=== PATIENT | female | born 1970 | race Caucasian/White ===

== ENCOUNTER 2019-11-12 14:44 | Emergency (ER) | payer BC, SELFPAY ==
[2019-11-12 14:56] VITALS: BP 111/71; PULSE 78; RESP 18; TEMP 37.2; O2SAT 100
--- NOTE | 2019-11-12 15:30 | ED.URI ---
HPI - URI/Sore Throat General Chief Complaint: Upper Respiratory Infection Stated Complaint: cough/sinus Time Seen by Provider: 11/12/19 15:31 Source: patient and RN notes reviewed Mode of arrival: ambulatory Limitations: no limitations History of Present Illness HPI Narrative: 49 year old female who presents to [facility] care with complaints of 3 week history of cough, pressure to face noted with clear nasal drainage. Patient states that her cough is productive of yellow tinged mucous, denies any wheezing or acute shortness of breath, SAO2 100% on room air. MD elicited complaint: cough, rhinorrhea, nasal congestion and sinus pain Pertinent past history: sinusitis Onset (ago): week(s) (3) Consistency: progressively worsening Severity: similar to previous episodes Description of mucous: clear and yellow Able to tolerate fluids by mouth: Yes Exacerbating factors: exertion, supine positioning and leaning forward Relieving factors: nothing Associated symptoms: headache, rhinorrhea, nasal congestion and cough Treatments prior to arrival: acetaminophen and other (cough medication) Related Data Allergies Allergy/AdvReac Type Severity Reaction Status Date / Time No Known Allergies Allergy Verified 11/12/19 14:58 Review of Systems Review of Systems: Narrative: CONSTITUTIONAL: Denies fever, chills, or sweats. EYES: Denies visual changes, redness, or discharge. ENT: positive for rhinorrhea, congestion, no sore throat, otalgia. CARDIOVASCULAR: Denies chest pain, palpitations, or edema. RESPIRATORY: positive cough denies dyspnea. GASTROINTESTINAL: Denies abdominal pain, nausea, vomiting, or diarrhea. GENITOURINARY: Denies dysuria or hematuria. SKIN: Denies rash or itching. MUSCULOSKELETAL: Denies back pain, joint pain, or myalgia. NEUROLOGIC: Positive headache, numbness, or weakness. PSYCHIATRIC: Denies anxiety or depression. All systems reviewed & are unremarkable except as noted in HPI and below PMFSH Past Medical History Medical History (Updated 11/12/19 @ 18:18 by Sonia Stephens NP) Sinusitis Social History Social History (Updated 11/12/19 @ 18:17 by Sonia Stephens NP) Smoking status: Current every day smoker Living arrangements: with family Gender identity (if verbalized by the patient): Female Comments At time of signature, agree with nursing past medical, social history. There is no relevant family history pertinent to the presenting complaint Exam Narrative: Exam Narrative: GENERAL: Well-appearing, well-nourished, and in no acute distress. HEAD: Normocephalic, atraumatic. EYES: PERRLA and EOMI. ENT: Nares red, clear rhinorrhea no epistaxis. Mucous membranes moist. NECK: Supple.no lymphadenopathy CHEST: Clear to auscultation. No respiratory distress.cough productive yellow mucous HEART: Regular rate and rhythm. No murmur heard. Normal peripheral pulses. ABDOMEN: Soft, nontender, nondistended, normal active bowel sounds. EXTREMITIES: Normal range of motion. No edema. SKIN: Warm, dry, no rash. NEURO: No focal deficits. Alert and oriented x3. Course Vital Signs Vital signs: Vital Signs Temperature 37.2 C 11/12/19 14:56 Pulse Rate 78 11/12/19 14:56 Respiratory Rate 18 11/12/19 14:56 Blood Pressure 111/71 11/12/19 14:56 Pulse Oximetry 100 11/12/19 14:56 Temperature 37.2 C 11/12/19 14:56 Pulse Rate 78 11/12/19 14:56 Respiratory Rate 18 11/12/19 14:56 Blood Pressure 111/71 11/12/19 14:56 Pulse Oximetry 100 11/12/19 14:56 MDM - URI/Sore Throat Differential Diagnosis Differential diagnosis: Likely upper respiratory infection, sinusitis and other (cough and congestion) Medical Records Attestation: I reviewed the patient's medical records. Critical Care Time Critical Care Time Critical Care Time: No Discharge Plan Discharge Clinical Impression: Sinusitis Qualifiers: Sinusitis location: other Chronicity: acute Recurrence: non-recurrent Qualified Code(s): J01
== END 2019-11-12 15:52 | disposition home or self-care (01) ==
PROVIDERS: Emergency Provider Registered Nurse; PCP Family Medicine
DX: J01.80 Other acute sinusitis (principal); F17.200 Nicotine dependence, unspecified, uncomplicated
CPT/HCPCS: 99213; G0463

== ENCOUNTER 2021-09-16 09:22 | Outpatient (CLI) | payer BC, SELFPAY ==
[2021-09-16 13:09] LABS: Alanine Aminotransferase 30 U/L (4-35); Albumin Level 4.6 g/dL (3.5-5.1); Alkaline Phosphatase 124 U/L (38-126); Anion Gap 8 mmol/L (8-16); Aspartate Amino Transferase 56 U/L (14-36); Bilirubin,Total 0.5 mg/dL (0.2-1.3); Blood Urea Nitrogen 15 mg/dL (7-17); Carbon Dioxide 27 mmol/L (22-30); Chloride 105 mmol/L (98-107); Cholesterol 242 mg/dL (0-200); Estimated Glomerular Filt Rate > 60; Glucose 88 mg/dL (65-110); HDL Direct 71 mg/dL; Potassium 3.9 mmol/L (3.4-5.0); Sodium 140 mmol/L (137-145); Triglycerides 112 mg/dL (<150)
[2021-09-16 13:19] LABS: LDL Cholesterol Direct 119 mg/dL
== END 2021-09-16 09:23 | disposition home or self-care (01) ==
LOC: ANHWCLAB 09:24
PROVIDERS: PCP Emergency Medicine; Visit Provider Emergency Medicine
DX: Z13.220 Encounter for screening for lipoid disorders (principal)
CPT/HCPCS: 36415; 80053; 80061

== ENCOUNTER 2021-10-03 08:50 | Outpatient (CLI) | payer BC, SELFPAY ==
--- NOTE | ~2021-10-03 | CT_ITS ---
EXAMINATION: CT abdomen pelvis wo con EXAM DATE: 10/03/2021 09:30 INDICATION: R10.9 - Unspecified abdominal pain . TECHNIQUE: Spiral CT of the abdomen and pelvis was performed without contrast. Axial, coronal and sag ittal images were reviewed. The dose-length product (DLP) for this examination was 185.58 mGy-cm. T he exposure was tailored according to patient size (auto mA exposure control), and iterative reconstr uction (ASIR) was used as additional dose reduction technique. There is no prior study for compariso n. FINDINGS: There is no nephrolithiasis or hydronephrosis. The uterus is anteverted and morphological ly normal. The bladder is unremarkable. The liver, spleen, adrenal glands and pancreas are unremar kable. Gallbladder is unremarkable. No biliary obstruction. There is no retroperitoneal or pelvic lymphadenopathy. Small umbilical fat-containing hernia. There are no findings to suggest appendicitis. The stomach and small bowel are unremarkable. There is moderate amount of colonic stool. No free intraperitoneal gas. The heart is normal in size. T here are no pericardial or pleural effusions. 5 mm left lower lobe nodule without spiculations. Isatu ral other smaller left lower lobe nodules. These are probably granulomas. Several left lower lobe vira cified granulomas. If patient has risk factor for lung cancer consider a follow-up chest CT without c ontrast. There are no osteoblastic or osteolytic lesions identified. IMPRESSION: 1. Moderate amount of colonic stool. 2. Left basilar calcified and noncalcified nodules and granulomas; optional one-year follow-up chest CT without contrast. Reviewed, dictated and finalized at location [facility] [employer] IMPRESSION: 1. Moderate amount of colonic stool. 2. Left basilar calcified and noncalcified nodules and granulomas; optional on e-year follow-up chest CT without contrast.
== END 2021-10-03 08:51 | disposition home or self-care (01) ==
LOC: ANHIMG 08:56
PROVIDERS: PCP Emergency Medicine; Visit Provider Emergency Medicine
DX: R10.9 Unspecified abdominal pain (principal); R91.8 Other nonspecific abnormal finding of lung field
CPT/HCPCS: 74176

== ENCOUNTER 2021-11-21 09:47 | Outpatient (CLI) | payer BC, SELFPAY ==
--- NOTE | ~2021-11-21 | MM_ITS ---
EXAMINATION: MM screening liz BI w ct HISTORY: Screening TECHNIQUE: Craniocaudal and mediolateral oblique 3-D tomosynthesis images were obtained and synthetic 2-D images were generated. CAD analysis was submitted and interpreted. COMPARISON: No prior mammogram is available for comparison at this institution. BREAST PARENCHYMAL COMPOSITION: The breasts are heterogenously dense, which may obscure small masses FINDINGS: There is an asymmetry in the medial aspect of the left breast on CC view. There is no evide nce for malignancy in the right breast. IMPRESSION: 1. Focal asymmetry medial aspect of the left breast 2. Additional mammographic views and possible breast ultrasound are recommended. BI-RADS Category 0: Incomplete: Needs additional imaging evaluation. Reviewed, dictated and finalized at location [facility]. [facility] [employer] [facility] IMPRESSION: 1. Focal asymmetry medial aspect of the left breast 2. Additional mammographic views and possible breast ultrasound are recommended . BI-RADS Category 0: Incomplete: Needs additional imaging evaluation.
== END 2021-11-21 09:48 | disposition home or self-care (01) ==
LOC: ANHIMG 09:48
PROVIDERS: PCP Emergency Medicine; Visit Provider Emergency Medicine
DX: Z12.31 Encounter for screening mammogram for malignant neoplasm of breast (principal); R92.8 Other abnormal and inconclusive findings on diagnostic imaging of breast
CPT/HCPCS: 77063; 77067

== ENCOUNTER 2021-12-17 10:34 | Outpatient (CLI) | payer BC, SELFPAY ==
--- NOTE | ~2021-12-17 | MMUS_ITS ---
EXAMINATION: MM diagnostic liz LT w ct, US breast LT limited HISTORY: Possible left breast mass on screening mammogram TECHNIQUE: Additional 3-D tomosynthesis images of the left breast were performed and synthetic 2-D im ages were generated. CAD analysis was submitted and interpreted. High resolution limited left breast ultrasound was performed. COMPARISON: 11/21/2021, 05/23/2018, 06/18/2011 FINDINGS: MAMMOGRAPHIC FINDINGS: There is an approximately 3 mm obscured equal density mass in the middle third of inner breast at the 9:00 location which is decreased in size since the recent screening mammogram, consistent with a lewis ign finding. No suspicious calcification or architectural distortion are identified. ULTRASOUND: There is no evidence of focal abnormal solid or cystic mass in the vicinity of the mammographic findi ng in question. IMPRESSION: 1. No mammographic or sonographic evidence of malignancy. 2. Recommend routine screening mammography in one year. BI-RADS Category 2: Benign finding(s). Reviewed, dictated and finalized at location A. IMPRESSION: 1. No mammographic or sonographic evidence of malignancy. 2. Recommend routine screening mammography in one year. BI-RADS Category 2: Benign finding(s).
== END 2021-12-17 10:35 | disposition home or self-care (01) ==
PROVIDERS: PCP Emergency Medicine; Visit Provider Emergency Medicine
DX: N64.89 Other specified disorders of breast (principal)
CPT/HCPCS: 76642; 77061; 77065; G0279

== ENCOUNTER 2022-02-08 08:35 | Outpatient (CLI) | payer BC, SELFPAY ==
[2022-02-08 17:06] LABS: Albumin Level 4.6 g/dL (3.5-5.1); Alkaline Phosphatase 136 U/L (38-126); Anion Gap 9 mmol/L (8-16); Aspartate Amino Transferase 48 U/L (14-36); Bilirubin,Total 0.3 mg/dL (0.2-1.3); Blood Urea Nitrogen 11 mg/dL (7-17); Calcium 9.5 mg/dL (8.4-10.2); Carbon Dioxide 28 mmol/L (22-30); Chloride 102 mmol/L (98-107); Cholesterol 240 mg/dL (0-200); Estimated Glomerular Filt Rate > 60; Glucose 77 mg/dL (65-110); HDL Direct 56 mg/dL; Potassium 3.7 mmol/L (3.4-5.0); Sodium 139 mmol/L (137-145); Triglycerides 143 mg/dL (<150)
[2022-02-08 17:16] LABS: LDL Cholesterol Direct 111 mg/dL
[2022-02-08 17:20] LABS: Alanine Aminotransferase 23 U/L (6-35)
[2022-02-13 17:46] LABS: Estrogen 79.6 pg/mL
== END 2022-02-08 08:36 | disposition home or self-care (01) ==
LOC: ANHWCLAB 08:39
PROVIDERS: PCP Emergency Medicine; Visit Provider Emergency Medicine
DX: Z13.6 Encounter for screening for cardiovascular disorders (principal); R53.83 Other fatigue
CPT/HCPCS: 36415; 80053; 80061; 82672; 83001; 84443

== ENCOUNTER 2022-10-25 07:58 | Outpatient (CLI) | payer BC, SELFPAY ==
[2022-10-25 12:49] LABS: Alanine Aminotransferase 19 U/L (6-35); Albumin Level 4.3 g/dL (3.5-5.1); Alkaline Phosphatase 108 U/L (38-126); Anion Gap 6 mmol/L (8-16); Aspartate Amino Transferase 44 U/L (14-36); Bilirubin,Total 0.5 mg/dL (0.2-1.3); Blood Urea Nitrogen 12 mg/dL (7-17); Calcium 9.5 mg/dL (8.4-10.2); Carbon Dioxide 29 mmol/L (22-30); Chloride 107 mmol/L (98-107); Cholesterol 214 mg/dL (0-200); Estimated Glomerular Filt Rate > 60; Glucose 105 mg/dL (65-110); HDL Direct 60 mg/dL; Potassium 4.3 mmol/L (3.4-5.0); Sodium 142 mmol/L (137-145); Triglycerides 83 mg/dL (<150)
[2022-10-25 13:00] LABS: LDL Cholesterol Direct 99 mg/dL
== END 2022-10-25 07:59 | disposition home or self-care (01) ==
LOC: ANHWCLAB 07:59
PROVIDERS: PCP Emergency Medicine; Visit Provider Emergency Medicine
DX: R53.83 Other fatigue (principal)
CPT/HCPCS: 36415; 80053; 80061

== ENCOUNTER 2023-05-07 09:16 | Outpatient (CLI) | payer BC, SELFPAY ==
--- NOTE | ~2023-05-07 | MM_ITS ---
EXAMINATION: MM screening liz BI w ct HISTORY: Screening mammogram TECHNIQUE: Craniocaudal and mediolateral oblique 3-D tomosynthesis images were obtained and synthetic 2-D images were generated. CAD analysis was submitted and interpreted. COMPARISON: 12/17/2021 diagnostic left mammogram and limited left breast ultrasound BREAST PARENCHYMAL COMPOSITION: The breasts are heterogeneously dense, which may obscure small masses . FINDINGS: Occasional benign calcifications. There is no evidence of suspicious mass, calcification, o r architectural distortion to suggest malignancy in either breast. There has been no suspicious inter richa change. IMPRESSION: 1. No mammographic evidence of malignancy. 2. Recommend routine screening mammography in one year. BI-RADS Category 2: Benign finding(s). Reviewed, dictated and finalized at location A.
== END 2023-05-07 09:17 | disposition home or self-care (01) ==
LOC: ANHIMG 09:18
PROVIDERS: PCP Emergency Medicine; Visit Provider Emergency Medicine
DX: Z12.31 Encounter for screening mammogram for malignant neoplasm of breast (principal)
CPT/HCPCS: 77063; 77067

== ENCOUNTER 2023-05-10 08:14 | Outpatient (CLI) | payer BC, SELFPAY ==
[2023-05-10 17:54] LABS: Alanine Aminotransferase 22 U/L (6-35); Albumin Level 4.6 g/dL (3.5-5.1); Alkaline Phosphatase 93 U/L (38-126); Anion Gap 10 mmol/L (8-16); Aspartate Amino Transferase 50 U/L (14-36); Bilirubin,Total 0.5 mg/dL (0.2-1.3); Blood Urea Nitrogen 12 mg/dL (7-17); Calcium 9.7 mg/dL (8.4-10.2); Carbon Dioxide 26 mmol/L (22-30); Chloride 105 mmol/L (98-107); Cholesterol 213 mg/dL (0-200); Estimated Glomerular Filt Rate > 60; Glucose 84 mg/dL (65-110); HDL Direct 59 mg/dL; Potassium 4.1 mmol/L (3.4-5.0); Sodium 141 mmol/L (137-145); Triglycerides 97 mg/dL (<150)
[2023-05-10 18:04] LABS: LDL Cholesterol Direct 117 mg/dL
[2023-05-14 12:58] LABS: Vitamin D 1,25 (OH)2 Total 64 pg/mL (18-72); Vitamin D2 1,25 (OH)2 <8 pg/mL; Vitamin D3 1,25 (OH)2 64 pg/mL
== END 2023-05-10 08:15 | disposition home or self-care (01) ==
LOC: ANHWCLAB 08:15
PROVIDERS: PCP Emergency Medicine; Visit Provider Emergency Medicine
DX: E55.9 Vitamin D deficiency, unspecified (principal); E78.5 Hyperlipidemia, unspecified
CPT/HCPCS: 36415; 80053; 80061; 82652

== ENCOUNTER 2023-11-09 09:20 | Outpatient (CLI) | payer BC, SELFPAY ==
[2023-11-09 16:50] LABS: Alanine Aminotransferase 25 U/L (6-35); Albumin Level 4.2 g/dL (3.5-5.1); Alkaline Phosphatase 96 U/L (38-126); Anion Gap 10 mmol/L (8-16); Aspartate Amino Transferase 57 U/L (14-36); Bilirubin,Total 0.5 mg/dL (0.2-1.3); Blood Urea Nitrogen 13 mg/dL (7-17); Calcium 9.7 mg/dL (8.4-10.2); Carbon Dioxide 22 mmol/L (22-30); Chloride 105 mmol/L (98-107); Cholesterol 213 mg/dL (0-200); Estimated Glomerular Filt Rate > 60; Glucose 126 mg/dL (65-110); HDL Direct 69 mg/dL; Potassium 3.8 mmol/L (3.4-5.0); Sodium 137 mmol/L (137-145); Triglycerides 88 mg/dL (<150)
[2023-11-09 17:01] LABS: LDL Cholesterol Direct 106 mg/dL
[2023-11-09 17:15] LABS: Vitamin D 25 Hydroxy 19.6 ng/mL
== END 2023-11-09 09:21 | disposition home or self-care (01) ==
LOC: ANHWCLAB 09:20
PROVIDERS: PCP Emergency Medicine; Visit Provider Emergency Medicine
DX: R53.83 Other fatigue (principal); E55.9 Vitamin D deficiency, unspecified; Z13.220 Encounter for screening for lipoid disorders
CPT/HCPCS: 36415; 80053; 80061; 82306

== ENCOUNTER 2023-11-14 08:12 | Outpatient (CLI) | payer BC, SELFPAY ==
[2023-11-14 12:44] LABS: Hemoglobin A1C 5.4 % (<5.7)
== END 2023-11-14 08:13 | disposition home or self-care (01) ==
LOC: ANHWCLAB 08:13
PROVIDERS: PCP Emergency Medicine; Visit Provider Emergency Medicine
DX: R73.09 Other abnormal glucose (principal)
CPT/HCPCS: 36415; 83036

== ENCOUNTER 2023-12-21 15:30 | Outpatient (RCR) | payer BC, SELFPAY ==
--- NOTE | 2023-12-01 11:00 | PTOPEVAL1 ---
Assessment and note entered by Dewayne Lima Evaluation Information Assessment Status Evaluation Diagnosis low back pain, SI joint pain Onset 02/17/23 Subjective Information Pt. reports she developed low back pain around February. She does not recall any specific injury and just woke with pain. She describes her pain in the area of the right side of the low back and weakness going into the right leg. She describes a heaviness through the right leg. She states that her pain is constant with varying intensity. She denies any falls, but states that she notices the right leg giving out and catching her toe on the right side with walking. She reports that she has undergone MRI, which revealed problems at the L5-S1 area. She reports that she enjoys dancing, but is unable to dance due to pain and weakness. She states that she cannot run even short distance to linda her dog. She reports that she has been doing house cleaning, just with increased pain. She reports that her goal for therapy is to decrease her low back pain. Reported Pain Level Pain Score 3: Self Report Assessment PT Clinical Summary Pt. is a 53 year old female who enters the clinic with low back pain secondary to degenerative changes. Flexion categories are initiated on this date with pt. reporting no increase in symptoms. She currently present with impaired l.e. strength , impaired postural awareness, impaired gait and pain. Continued skilled PT is indicated in order to improve these areas to decrease pt. pain with IADL's. Plan of Care Interventions Electrical Stimulation,Hot Pack/Cold Pack,Manual Therapy,Mechanical Traction,Neuro Re-education, Patient/Caregiver Educati,Therapeutic Activities, Therapeutic Exercise PT Services Indicated Yes Treatment Frequency and 2x/week x 8 visits Duration These treatments will address the objective and functional deficits as defined above. The patient will be advanced safely and appropriately in order for the patient to progress towards his/her prior level of function. Additional exercises will be introduced and as well as a comprehensive home exercise program upon discharge, if needed, ?to ensure carryover of functional gains achieved in the clinic. This treatment plan has been reviewed and agreement upon by the patient.
--- NOTE | 2023-12-01 11:00 | OPREHPOC ---
Outpatient Therapy Plan of Care This is a Multidisciplinary Plan of Care that may contain components documented by all disciplines (PT, OT, and ST.) PT Problem 1 PT Problem #1 Knowledge Deficit PT Goal 1 Goal Independent with a HEP addressing trunk mobility and core strength. Target Visit 2 PT Problem 2 PT Problem #2 Pain PT Goal 1 Goal Pt. will report a reduction in pain with prolonged standing to 4/10 at worst Target Visit 8 PT Problem 3 PT Problem #3 Impaired Gait PT Goal 1 Goal Pt. will present with equal right and left stance time, demonstrating no degree of trendelenburg on the right. Target Visit 8 PT Problem 4 PT Problem #4 Impaired Strength PT Goal 1 Goal Pt. will demonstrate 4+/5 gross right l.e. strength and improved symmetry with right and left during 10 rep single limb heel raises. Target Visit 8
--- NOTE | 2023-12-28 10:59 | PCPTNOTE ---
Pt. contacted the clinic and cancelled her appointment scheduled for today. Dewayne Lima, MPT
--- NOTE | 2024-01-19 08:52 | PCPTNOTE ---
Mrs. Emanuel attended a total of 3 treatment sessions from 12/01/23 to 12/21/23. Treatment consisted of manual techniques, modality care and core strengthening activities. She contacted the clinic stating that she had to cancel all remaining sessions due to insurance limitations. Refer to her last daily note for patient discharge status. Thank you for the referral of this patient. Dewayne Lima, MPT
== END 2024-01-19 09:16 | disposition home or self-care (01) ==
LOC: ANHPT 15:30
PROVIDERS: PCP Emergency Medicine; Visit Provider Neurological Surgery
DX: M54.50 Low back pain, unspecified (principal); M51.36 Other intervertebral disc degeneration, lumbar region; M46.1 Sacroiliitis, not elsewhere classified
CPT/HCPCS: 97014; 97110; 97140; 97161; 97530; G0283

== ENCOUNTER 2024-04-06 08:08 | Outpatient (CLI) | payer BC, SELFPAY ==
--- NOTE | ~2024-04-06 | DEXA_ITS ---
Bone Density Report Name: MAI KATZ Age: 53 Sex: Female Ethnicity: White Date of : 1970 Indication: postmenopausal; screening for osteoporosis; height loss; history of glucocorticoids; Referring Provider: CECY FONTENOT Study: Bone densitometry was performed. Exam Date: April 06, 2024 Accession number: [id number] Bone Density: Region BMD T-score Z-score Classification AP Spine(L1-L4) 0.826 -2.0 -1.0 Osteopenia Femoral Neck (Left) 0.557 -2.6 -1.7 Osteoporosis Total Hip (Left) 0.710 -1.9 -1.3 Osteopenia Femoral Neck (Right) 0.607 -2.2 -1.2 Osteopenia Total Hip (Right) 0.774 -1.4 -0.8 Osteopenia Total Hip Mean 0.742 -1.7 -1.1 Osteopenia World Health Organization criteria for BMD impression classify patients as: Normal (T-score at or above -1.0), Osteopenia (T-score between -1.0 and -2.5), or Osteoporosis (T-score at or below -2.5). 10-year Fracture Risk: FRAX not reported because: Some T-score for Spine Total or Hip Total or Femoral Neck at or below -2.5 Clinical Information Provided by Patient: Smokes Has taken Glucocorticoids Has used the following medications: Vitamin D Patient maximum height was 59 Menopause Age: 50 No regular weight bearing exercise Does not regularly consume dairy products Drinks caffeinated beverages Onset of menses at age 13 Number of children 2 Impression: The patient has osteoporosis, based on the Left Femoral Neck T-score. The patient has risk factors, including: smoking, history of glucocorticoid therapy. Discussion: INCREASED RISK OF FRACTURE. BONE DENSITY IS UNDESIRABLY LOW AT ONE OR MORE SKELETAL SITES, CONSISTENT WITH POSTMENOPAUSAL OSTEOPOROSIS. This patient's lowest T-score meets the World Health Organization's (WHO) criteria for osteoporosis at one or more sites (T-score -2.5 or below). In untreated patients, the risk of osteoporotic fracture increases approximately two-fold for each 1.0 SD decrease in T-score. Low bone density is not the only risk factor for fracture; also consider factors such as patient's age, frailty or poor health, risk of falling, risk of injury, previous osteoporotic fracture, family history of osteoporosis, cigarette smoking, low body weight, etc. Not everyone with low bone mineral density has osteoporosis; osteomalacia and other metabolic bone disorders should also be considered. Patients who have osteoporosis should be evaluated for specific diseases and conditions (secondary causes) that may cause or contribute to bone loss. The [place] Association of Clinical Endocrinologists (AACE) and National Osteoporosis Foundation (NOF) recommend pharmacologic intervention for all postmenopausal women whose T-score is in this range. The patient should follow a healthful lifestyle (good nutrition with adequate calcium and vitamin D,
== END 2024-04-06 08:09 | disposition home or self-care (01) ==
LOC: ANHIMG 08:09
PROVIDERS: PCP Emergency Medicine; Visit Provider Nurse Practitioner Family
DX: M85.88 Other specified disorders of bone density and structure, other site (principal); M81.0 Age-related osteoporosis without current pathological fracture; M85.852 Other specified disorders of bone density and structure, left thigh; M85.851 Other specified disorders of bone density and structure, right thigh
CPT/HCPCS: 77080

== ENCOUNTER 2024-06-02 09:37 | Outpatient (CLI) | payer BC, SELFPAY ==
[2024-06-02 10:41] LABS: Potassium 3.9 mmol/L (3.4-5.0)
[2024-06-02 10:43] LABS: Alanine Aminotransferase 16 U/L (6-35); Albumin Level 4.4 g/dL (3.5-5.1); Alkaline Phosphatase 92 U/L (38-126); Anion Gap 6 mmol/L (4-12); Aspartate Amino Transferase 22 U/L (14-36); Bilirubin,Total 0.4 mg/dL (0.2-1.3); Blood Urea Nitrogen 12 mg/dL (7-17); Calcium 9.4 mg/dL (8.4-10.2); Carbon Dioxide 31 mmol/L (22-30); Chloride 99 mmol/L (98-107); Estimated Glomerular Filt Rate > 60; Glucose 91 mg/dL (65-110); Sodium 136 mmol/L (137-145)
[2024-06-02 11:04] LABS: Vitamin D 25 Hydroxy 50.6 ng/mL
== END 2024-06-02 09:38 | disposition home or self-care (01) ==
LOC: ANHLAB 09:38
PROVIDERS: PCP Emergency Medicine; Visit Provider Emergency Medicine
DX: E78.5 Hyperlipidemia, unspecified (principal); E55.9 Vitamin D deficiency, unspecified
CPT/HCPCS: 36415; 80053; 82306

== ENCOUNTER 2024-12-29 08:21 | Outpatient (CLI) | payer OTHER, SELFPAY ==
--- OUTSIDE RECORDS SUMMARY | 2024-12-29 08:25 | XMS_ITS | Clinical Summary ---
Author Organization [facility] Address [address] [place] [address] Care Team Providers Care Radiation Therapist Name Role Phone Dewayne Tobin MD Primary Care Provider [phone] Social History Tobacco Use Types Packs/Day Years Used Date Smoking Tobacco: Never Assessed Comments Unknown Sex and Gender Information Value Date Recorded Sex Assigned at Not on file Legal Sex Female 7:19 PM CDT Gender Identity Not on file Sexual Orientation Not on file Plan of Treatment Health Maintenance Due Date Last Done Comments Cervical Cancer Screening Pap Smear (Age 30 to 64) Every 3 Years 1970 Colorectal Cancer Screening Colonoscopy (10 Years) 1970 Annual Physical 1973 Hepatitis C 1988 DTaP, Tdap and Td Vaccines (1 - Tdap) 1989 Hepatitis B Vaccines (1 of 3 - 19+ 3-dose series) 1989 Cervical Cancer Screening Pap with HPV Testing (Age 30 to 64) Every 5 Years 2000 Cervical Cancer Screening with HPV 2000 Mammogram Screening 2010 Zoster Vaccines (1 of 2) 2020 COVID-19 Vaccine ( season) 2024 06/04/2022, 06/26/2021, 09/27/2020, Additional history exists Meningococcal B Vaccine Aged Out No l onger eligible based on patient's age to complete this topic Meningococcal Vaccine Aged Out No kristy sabina eligible based on patient's age to complete this topic Pneumococcal Vaccine: Pediatrics (0 to 5 Years) and At-Risk Patients (6 to 64 Years) Aged Out No longer eligible based on patient's age to complete this topic RSV Immunizations Under 20 Months Aged Out No longer eligible based on patient's age to complete this topic Insurance [facility] Care Teams Radiation Therapist Relationship Specialty Start Date End Date Dewayen Tobin MD [address] [place] [address] PCP - General INTERNAL MEDICINE 08/26/23
[2024-12-29 09:02] LABS: Alanine Aminotransferase 22 U/L (6-35); Albumin Level 4.5 g/dL (3.5-5.1); Alkaline Phosphatase 68 U/L (38-126); Anion Gap 10 mmol/L (4-12); Aspartate Amino Transferase 21 U/L (14-36); Bilirubin,Total 0.4 mg/dL (0.2-1.3); Blood Urea Nitrogen 14 mg/dL (7-17); Calcium 9.5 mg/dL (8.4-10.2); Carbon Dioxide 26 mmol/L (22-30); Chloride 104 mmol/L (98-107); Estimated Glomerular Filt Rate > 60; Glucose 104 mg/dL (65-110); Potassium 3.8 mmol/L (3.4-5.0); Sodium 140 mmol/L (137-145)
[2024-12-29 09:46] LABS: Vitamin D 25 Hydroxy 53.7 ng/mL
== END 2024-12-29 08:22 | disposition home or self-care (01) ==
PROVIDERS: PCP Emergency Medicine; Visit Provider Emergency Medicine
DX: E55.9 Vitamin D deficiency, unspecified (principal); E78.5 Hyperlipidemia, unspecified
CPT/HCPCS: 36415; 80053; 82306

== ENCOUNTER 2025-01-10 15:36 | Outpatient (CLI) | payer OTHER, SELFPAY ==
--- NOTE | ~2025-01-10 | MM_ITS ---
EXAMINATION: MM screening liz BI w ct HISTORY: Screening TECHNIQUE: Craniocaudal and mediolateral oblique 3-D tomosynthesis images were obtained and synthetic 2-D images were generated. CAD analysis was submitted and interpreted. COMPARISON: Comparison to multiple prior studies sequentially, with oldest reviewed study dated 12/2017. BREAST PARENCHYMAL COMPOSITION: Dense: The breasts are heterogeneously dense, which may obscure small masses FINDINGS: There is a focal asymmetry inferiorly in the right breast, middle third on MLO view. The le ft breast is stable without evidence for malignancy. IMPRESSION: 1. Focal right breast asymmetry. 2. Additional mammographic views and possible breast ultrasound are recommended. BI-RADS Category 0: Incomplete: Needs additional imaging evaluation. Reviewed, dictated and finalized at location A. IMPRESSION: 1. Focal right breast asymmetry. 2. Additional mammographic views and possible breast ultrasound are recommended . BI-RADS Category 0: Incomplete: Needs additional imaging evaluation.
--- OUTSIDE RECORDS SUMMARY | 2025-01-10 16:58 | XMS_ITS | Clinical Summary ---
Author Organization [facility] Address [address] [place] [address] Care Team Providers Care Bulb Packer Name Role Phone Dewayne Tobin MD Primary Care Provider [phone] Social History Tobacco Use Types Packs/Day Years [...] Screening with HPV 2000 Mammogram Screening 2010 Pneumococcal Vaccine: 50+ Years (1 of 1 - PCV) 2020 Zoster Vaccines (1 of 2) 2020 COVID-19 Vaccine (2023- season) 2024 06/04/2022, 06/26/2021, 09/27/2020, Additional history exists Meningococcal B Vaccine Aged Out No l onger eligible based on patient's age to complete this topic Meningococcal Vaccine Aged Out No kristy sabina eligible based on patient's age to complete this topic RSV Immunizations Under 20 Months Aged Out No longer eligible based on patient's age to complete this topic Insurance [facility] Care Teams Bulb Packer Relationship Specialty Start Date End Date Dewayne Tobin MD [address] [place] [address] PCP - General INTERNAL MEDICINE 08/26/23
== END 2025-01-10 15:37 | disposition home or self-care (01) ==
PROVIDERS: Visit Provider Emergency Medicine
DX: Z12.31 Encounter for screening mammogram for malignant neoplasm of breast (principal); R92.8 Other abnormal and inconclusive findings on diagnostic imaging of breast
CPT/HCPCS: 77063; 77067

== ENCOUNTER 2025-01-25 12:32 | Outpatient (CLI) | payer OTHER, SELFPAY ==
--- NOTE | ~2025-01-25 | MMUS_ITS ---
EXAMINATION: MM diagnostic liz RT w ct, US breast RT complete HISTORY: Follow-up right breast asymmetry. TECHNIQUE: Additional 3-D tomosynthesis images of the right breast were performed and synthetic 2-D i mages were generated. CAD analysis was submitted and interpreted. High resolution complete right agustin st ultrasound was performed. COMPARISON: Comparison to multiple prior studies sequentially, with oldest reviewed study dated 12/2017. BREAST PARENCHYMAL COMPOSITION: Dense: The breasts are heterogeneously dense, which may obscure small masses FINDINGS: MAMMOGRAPHIC FINDINGS: There are no suspicious masses, calcifications or architectural distortion in the right breast to sug gest malignancy. ULTRASOUND: Complete US of all 4 quadrants of the right breast/s and retroareolar region was reviewed. Normal het erogeneous echotexture without focal solid or cystic mass. IMPRESSION: 1. No evidence for malignancy in the right breast. 2. Routine yearly screening mammogram and regular clinical breast examination are recommended. BI-RADS Category 1: Negative Reviewed, dictated and finalized at location A. IMPRESSION: 1. No evidence for malignancy in the right breast. 2. Routine yearly screening mammogram and regular clinical breast examination a re recommended. BI-RADS Category 1: Negative
--- OUTSIDE RECORDS SUMMARY | 2025-01-25 12:36 | XMS_ITS | Clinical Summary ---
Author Organization [facility] Address [address] [place] [address] Care Team Providers Care Customer Account Manager Name Role Phone Dewayne Tobin MD Primary Care Provider [phone] Social History Tobacco Use Types Packs/Day Years [...] patient's age to complete this topic Insurance [facility] Care Teams Customer Account Manager Relationship Specialty Start Date End Date Dewayne Tobin MD [address] [place] [address] PCP - General INTERNAL MEDICINE 08/26/23
== END 2025-01-25 12:33 | disposition home or self-care (01) ==
LOC: ANHIMG 12:34
PROVIDERS: PCP Emergency Medicine; Visit Provider Emergency Medicine
DX: N64.89 Other specified disorders of breast (principal)
CPT/HCPCS: 76641; 77061; 77065; G0279

== ENCOUNTER 2025-06-29 08:39 | Outpatient (CLI) | payer OTHER, SELFPAY ==
--- OUTSIDE RECORDS SUMMARY | 2017-12-19 03:45 | XMS_ITS | Continuity of Care Document ---
Author Organization [facility] Address [address] [place] [address] [place] [address] Phone Care Team Providers Care Antenna Rigger Name Role Phone Caryl Molina MD Unavailable Unavailable Allergies, Adverse Reactions, Alerts Substance Reaction Status Criticality No Known Allergies Active No Inform ation Medications Medication Instructions Dosage Effective Dates (start - stop) Status Comments prednisolone acetate 1 % eye drops,suspension instill 1 drop into left eye QIDx1 week, TID x 1 week, BID x 1 week, QD x 1 week, then stop - Active Microgestin 1.5/30 (21) 1.5 mg-30 mcg tablet take 1 tablet by oral route every day 1.00 tablet - Active Procedures Procedure Date Office/outpatient Visit, Est Office/outpatient Visit, New Advance Directives Directive Yes / No Effective Date File Name No Information Encounters Encounter Description Practice Location Reason(s) For Visit Diagnoses Date Provider Providers Copied on Encounter Office/outpat ient Visit, [facility] [place] [address] [place] [address] [address], [place], [place], [id number], [place] tel:[phone] SEC Ted BEATTY Professional 4 day Uveitis f/u (chief complaint) Uveitis [address] [place], [address], [place]. tel:[phone] Office/outpat ient Visit, [facility], [address], [place], [place], [id number], [place] tel:[phone] JENNIFER BEATTY Professional Painful eye (chief complaint) Uveitis [address] [place], [address], [place]. tel:[phone] Referring Provider: Caryl Molina, [address] [place], [address]. tel:[phone] Family History Family Member Type Diagnosis Age At Onset Problem (finding) Family history of glauc lisa Father Problem (finding) Diabetes mellitus Problem (finding) Family history of degenerative disorder of macula Payers Payer name Insurance type Covered republican ID Ashvin cordero(s) Jadiel [id number] Social History Type Description Quantity Date Captured Comments Alcohol Use Details No Caffeine Use Details No Tobacco Use Status Current non-smoker 18 Smoking Status Never smoker Non-Smoking Tobacco Use Details : No Details Available : No Details Available Sex Female Chief Complaint And Reason For Visit From encounter dated '12/19/2017 08:45'. 4 day Uveitis f/u (chief complaint). Description: The 47 year old female presents for evaluation of4 day Uveitis f/u in the left eye. Pt reports she has been using Pred QID OS. Pt reports OS feels alot better since the last time she was here. Pt reports no pain, irritation or discomfort today, OU. Reason For Referral Reason For Referral No Information History Of Present Illness Encounter Date Complaint History Of Prese nt Illness 4 day Uveitis f/u The 47 year ol d female presents for evaluation of 4 day Uveitis f/u in the left eye. Pt reports she has been using Pred QID OS. Pt reports OS feels a lot better since the last time she was here. Pt reports no pain, irritation or discomfort today, OU. Painful eye The 47 year old female presents for evaluation of Painful eye in the left eye. Pt reports no ocular injuries and no Sx. Pt reports she scratched her cornea about 3 yrs ago, not sure which eye. Pt reports OS is very painful, light sensitive, watery, burning and very light sensitive, since yesterday about noon. Functional Status Date Functional Assessmen t No Information Instructions Date Instruction Additional Infor everton Educational material provided Re lated to Uveitis Impression/Plan Impression/Plan Assessments Type Assessment Date assessment Uveitis Patient Care Teams Name Effective Dates (start - stop) Status Members No Information
[2025-06-29 09:17] LABS: Alanine Aminotransferase 18 U/L (6-35); Albumin Level 4.3 g/dL (3.5-5.1); Alkaline Phosphatase 68 U/L (38-126); Anion Gap 10 mmol/L (4-12); Aspartate Amino Transferase 22 U/L (14-36); Bilirubin,Total 0.4 mg/dL (0.2-1.3); Blood Urea Nitrogen 14 mg/dL (7-17); Calcium 9.3 mg/dL (8.4-10.2); Carbon Dioxide 27 mmol/L (22-30); Chloride 101 mmol/L (98-107); Estimated Glomerular Filt Rate > 60; Glucose 114 mg/dL (65-110); Potassium 3.6 mmol/L (3.4-5.0); Sodium 138 mmol/L (137-145); Total Protein 7.9 g/dL (6.3-8.2)
== END 2025-06-29 08:40 | disposition home or self-care (01) ==
LOC: ANHLAB 08:43
PROVIDERS: PCP Emergency Medicine; Visit Provider Emergency Medicine
DX: E78.5 Hyperlipidemia, unspecified (principal); E55.9 Vitamin D deficiency, unspecified
CPT/HCPCS: 36415; 80053; 82306